=== PATIENT | male | born 1970 | race African-American/Black ===

== ENCOUNTER 2018-08-25 18:40 | Emergency (ER) | payer OTHER ==
[~2018-08-25] VITALS: Ht 188 cm; Wt 90.7 kg
[2018-08-25 18:42] VITALS: BP 139/84
[2018-08-25] MEDS ORDERED: KEFLEX500 M1 PO (19:51)
[2018-08-25] MEDS ORDERED: NORCO 5-325 TA1 EACH PO (20:02)
== END 2018-08-25 20:26 | disposition home or self-care (01) ==
LOC: ER 18:40
DX: S01.21XA Laceration without foreign body of nose, initial encounter (principal); S02.2XXA Fracture of nasal bones, initial encounter for closed fracture; W26.8XXA Contact with other sharp object(s), not elsewhere classified, initial encounter; Y93.89 Activity, other specified; Y92.89 Other specified places as the place of occurrence of the external cause; Y99.8 Other external cause status

== ENCOUNTER 2020-03-20 02:21 | Emergency (ER) | payer OTHER ==
[~2020-03-20] VITALS: Ht 188 cm; Wt 81.7 kg
[~2020-03-20 02:21] MED LIST: KEFLEX500 M1 PO; NORCO 5-325 TA1 EACH PO
[2020-03-20 02:22] VITALS: BP 119/83
== END 2020-03-20 03:55 | disposition home or self-care (01) ==
LOC: ER 02:21
DX: M54.31 Sciatica, right side (principal); Z79.899 Other long term (current) drug therapy